=== PATIENT | male | born 1995 | race Caucasian/White ===

== ENCOUNTER 2017-10-11 23:13 | Emergency (ER) | payer SELFPAY, MEDICAID ==
[2017-10-12] MEDS: HYDROCODONE/APAP (10/325) TAB PO (04:45)
[2017-10-12] MEDS: PENICILLIN G BENZ 1.2 MIL UNIT SYG IM (04:49)
== END 2017-10-12 05:15 | disposition home or self-care (01) ==
LOC: E/R 23:13
DX: J02.0 Streptococcal pharyngitis (principal)
CPT/HCPCS: 96372; 99284-25

== ENCOUNTER 2018-01-03 13:52 | Emergency (ER) | payer MEDICAID ==
[2018-01-03] MEDS: LORAZEPAM 1 MG TAB PO (14:34)
== END 2018-01-03 15:00 | disposition home or self-care (01) ==
LOC: E/R 13:52
DX: F11.20 Opioid dependence, uncomplicated (principal)
CPT/HCPCS: 99283; Z7502

== ENCOUNTER 2018-02-02 12:01 | Emergency (ER) | payer MEDICAID ==
[2018-02-02] MEDS: IBUPROFEN 600 MG TAB PO (12:59)
== END 2018-02-02 13:45 | disposition home or self-care (01) ==
LOC: FTE 12:01
DX: M79.601 Pain in right arm (principal); F17.210 Nicotine dependence, cigarettes, uncomplicated
CPT/HCPCS: 73080; 73080-RT; 99283-25

== ENCOUNTER 2018-07-25 18:07 | Emergency (ER) | payer SELFPAY, MEDICAID | END 2018-07-25 19:11 | disposition left against medical advice (07) | LOC: FTE 18:07 | DX: Z53.21 Procedure and treatment not carried out due to patient leaving prior to being seen by health care provider (principal) ==

== ENCOUNTER 2018-09-04 19:30 | Emergency (ER) | payer SELFPAY | END 2018-09-04 20:23 | disposition left against medical advice (07) | LOC: E/R 19:30 | DX: Z53.21 Procedure and treatment not carried out due to patient leaving prior to being seen by health care provider (principal) ==

== ENCOUNTER 2018-09-04 21:18 | Emergency (ER) | payer SELFPAY | END 2018-09-05 01:20 | disposition home or self-care (01) | LOC: FTE 21:18 | DX: S40.022A Contusion of left upper arm, initial encounter (principal); X58.XXXA Exposure to other specified factors, initial encounter; Y92.9 Unspecified place or not applicable | CPT/HCPCS: 99282 ==

== ENCOUNTER 2018-11-09 23:15 | Emergency (ER) | payer SELFPAY ==
[2018-11-10] MEDS: SOD CHLORIDE 0.9% 1,000 ML IV (03:10)
[2018-11-10] MEDS: ONDANSETRON 4 MG INJ IV (03:10)
[2018-11-10] MEDS: morphine 4 MG/ML VIAL IV (03:10)
[2018-11-10 03:33] LABS: ADD MAN DIFF? NO
[2018-11-10] MEDS: DIPHENHYDRAMINE 50 MG INJ IV (03:36)
[2018-11-10 03:55] LABS: ALANINE AMINOTRANSFERASE 11 IU/L (13-69); ALBUMIN 4.3 g/dl (3.3-4.9); ALBUMIN/GLOBULIN RATIO 1.65; ALKALINE PHOSPHATASE 63 IU/L (42-121); ANION GAP 9 (5-13); ASPARTATE AMINO TRANSFERASE 19 IU/L (15-46); BILIRUBIN,INDIRECT 0.2 mg/dl (0-1.1); BILIRUBIN,TOTAL 0.2 mg/dl (0.2-1.3); BLOOD UREA NITROGEN 14 mg/dl (7-20); CALCIUM 9.1 mg/dl (8.4-10.2); CARBON DIOXIDE 25 mmol/L (21-31); CHLORIDE 109 mmol/L (97-110); CREATININE 0.89 mg/dl (0.61-1.24); Estimated GFR > 60 mL/min (>60); GLUCOSE 96 mg/dl (70-220); LIPASE 57 U/L (23-300); SODIUM 143 mmol/L (135-144); TOTAL PROTEIN 6.9 g/dl (6.1-8.1)
[2018-11-10 04:06] LABS: WHITE BLOOD COUNT 7.9 10^3/ul (4.8-10.8)
[2018-11-10 04:06] LABS: BASOPHIL # 0.1 10^3/ul (0.0-0.1); BASOPHILS % 0.9 % (0.0-2.0); EOSINOPHILS # 0.3 10^3/ul (0.0-0.5); EOSINOPHILS % 3.7 % (0.0-7.0); HEMATOCRIT 38.2 % (42.0-52.0); HEMOGLOBIN 12.4 g/dl (14.0-18.0); LYMPHOCYTES # 2.9 10^3/ul (0.8-2.9); LYMPHOCYTES % 37.2 % (15.0-51.0); MEAN CORPUSCULAR HEMOGLOBIN 28.3 pg (29.0-33.0); MEAN CORPUSCULAR HGB CONC 32.5 g/dl (32.0-37.0); MEAN CORPUSCULAR VOLUME 87.2 fl (82.0-101.0); MEAN PLATELET VOLUME 11.1 fl (7.4-10.4); MONOCYTE # 0.5 10^3/ul (0.3-0.9); MONOCYTES % 6.4 % (0.0-11.0); NEUTROPHIL # 4.1 10^3/ul (1.6-7.5); NEUTROPHILS % 51.5 % (39.0-77.0); PLATELET COUNT 182 10^3/UL (140-415); RED BLOOD COUNT 4.38 10^6/ul (4.70-6.10); RED CELL DISTRIBUTION WIDTH 13.2 % (11.5-14.5)
[2018-11-10] MEDS: IOHEXOL 300MG/ML 150 ML BTL (04:27)
[2018-11-10] MEDS: SOD CHLORIDE 0.9% 100 ML (04:28)
[2018-11-10 05:49] LABS: URINE BLOOD (Dip) POC Negative (NEGATIVE); URINE GLUCOSE (Dip) POC Negative (NEGATIVE); URINE KETONES (Dip) POC Negative (NEGATIVE); URINE LEUKOCYTE EST (Dip) POC Negative (NEGATIVE); URINE NITRITE (Dip) POC Negative (NEGATIVE); URINE TOTAL PROTEIN POC Negative (NEGATIVE)
== END 2018-11-10 06:01 | disposition home or self-care (01) ==
LOC: FTE 23:15
DX: K64.9 Unspecified hemorrhoids (principal)
CPT/HCPCS: 74177; 80053; 81003; 83690; 85025; 96374; 96375; 99285-25

== ENCOUNTER 2019-04-04 22:56 | Emergency (ER) | payer SELFPAY | END 2019-04-05 00:30 | disposition left against medical advice (07) | LOC: E/R 22:56 | DX: Z53.21 Procedure and treatment not carried out due to patient leaving prior to being seen by health care provider (principal) ==